=== PATIENT | female | born 1970 | race Caucasian/White ===

== ENCOUNTER → 2018-02-13 08:34 | Outpatient (CLI) | payer OTHER, SELFPAY ==
--- NOTE | 2018-02-13 08:37 | BI_ITS ---
MAMMOGRAPHY - BILATERAL SCREENING REASON FOR EXAM: Female, 47 years old. Routine annual screening examination. PERTINENT HISTORY: Grandmother with breast cancer. TECHNIQUE: Digital bilateral breast curtis (3D mammographic acquisition) in the CC and MLO projections. 2-D mediolateral oblique (MLO) and craniocaudad (CC) views of both breasts were obtained. CAD: Full Field Digital Mammography with Computer Added Detection was performed. COMPARISON: Comparison is made with prior study dated February 12, 2017 and February 11, 2016. FINDINGS: Breast Composition: The breasts are heterogeneously dense, which may obscure small masses. There are no dominant masses or suspicious calcifications. Small benign-appearing bilateral axillary lymph nodes. No other significant abnormalities are identified. There has been no significant change since the prior study. BI/SCREENING MAMM (CAD), BILAT IMPRESSION: Stable bilateral screening mammogram. Yearly follow-up mammogram recommended. (A) ASSESSMENT CATEGORY: BIRADS Category 2: Benign. A letter regarding these results will be sent to the patient by the facility within 30 days. Approximately 10% of breast cancers are not detected by mammography. A normal mammogram should not delay biopsy of a clinically suspicious abnormality. [id number] Electronically Signed: Abel Gonzalez MD at 11:09 EST Tel [phone], Service support ,
--- OUTSIDE RECORDS SUMMARY | 2018-05-17 09:08 | XMS RPT_ITS ---
:1970 Author Organization [facility] Care Team Providers Name Role Phone CORY ORTA, DR. DOWNING Attending Unavailable KELSEY ISSA Primary Care Unavailable Erika Gu Attending Unavailable Luis Manuel Kelsey Primary Care Unavailable PROBLEMS PROBLEMS DATE TYPE CONDITION / CODE ATTENDING STATUS SOURCE 01/29/2018 Admitting Ulcerative colitis, CORY ORTA, Active [facility] Diagnosis unspecified, [facility] without Repository complications / K51.90(ICD-10) 01/29/2018 Admitting DiarrheaCORY MD., Active [facility] Diagnosis unspecified / [facility] R19.7(ICD-10) Repository PROCEDURES PROCEDURES No Procedure Records FoundRESULTS RESULTS SCREENING MAMM (CAD), Observed: 02/13/2018 Status: F Source: [place] BILAT 8:37 AM [facility] Imaging Services [address] [place] [address] SCREENING MAMM (CAD), BILAT MR#: [id number] Acct: [id number] Name: NIALL THIBODEAUX Rep #: [id number] : 1970 F 47 From: Abel Gonzalez MD PCP: Kelsey Issa DO Status: REG CLI Study: SCREENING MAMM (CAD), BILAT Date of Exam: 02/13/18 Exam# [id number] Ordering Dr: Erika Gu MD MAMMOGRAPHY - BILATERAL SCREENING REASON FOR EXAM: Female, 47 years old. Routine annual screening examination. PERTINENT HISTORY: Grandmother with breast cancer. TECHNIQUE: Digital bilateral breast curtis (3D mammographic acquisition) in the CC and MLO projections. 2-D mediolateral oblique (MLO) and craniocaudad (CC) views of both breasts were obtained. CAD: Full Field Digital Mammography with Computer Added Detection was performed. COMPARISON: Comparison is made with prior study dated February 12, 2017 and February 11, 2016. FINDINGS: Breast Composition: The breasts are heterogeneously dense, which may obscure small masses. There are no dominant masses or suspicious calcifications. Small benign-appearing bilateral axillary lymph nodes. No other significant abnormalities are identified. There has been no significant change since the prior study. BI/SCREENING MAMM (CAD), BILAT IMPRESSION: Stable bilateral screening mammogram. Yearly follow-up mammogram recommended. (A) ASSESSMENT CATEGORY: BIRADS Category 2: Benign. A letter regarding these results will be sent to the patient by the facility within 30 days. Approximately 10% of breast cancers are not detected by mammography. A normal mammogram should not delay biopsy of a clinically suspicious abnormality. [id number] Electronically Signed: Abel Gonzalez MD at 11:09 EST Tel [phone], Service support , CC: Kelsey Issa DO; Erika Gu MD Crisis Manager: Signed FINAL SURGICAL Observed: 01/29/2018 Status: F Source: [facility] PATHOLOGY REPORT 2:31 PM [facility] REPOSITORY . Pathology Reports Accession: Collected Date/Time: Received Date/Time: Pathologist: [id number] 01/29/2018 14:31 EST 01/30/2018 14:31 MD BRODY SAWYER Final Surgical Pathology Report DIAGNOSIS: LEFT COLON, BIOPSY -- HYPERPLASTIC POLYP (SEE COMMENT). Comment: There is no evidence of active ulcerative colitis. There is no evidence of dysplasia. CLINICAL INFORMATION: HISTORY OF ULCERATIVE COLITIS SPECIMEN: A LEFT COLON, BX- R/O ULCERATIVE COLITIS / DYSPLASIA GROSS DESCRIPTION: Received in formalin labeled left colon biopsy are several sloan glistening soft tissues ranging from 0.2-0.8 cm. TS -1 Dictated by Jaida LAU ([facility]) MICROSCOPIC DESCRIPTION: Slides reviewed. Electronically Signed by Pathology Report verified by [facility] Electronically signed by BRODY LAY MD Sign out Date: 01/31/2018 15:14 Performing Lab: [facility], [address] [place] [address] Performed By: #### SPFR #### [place] [address] ALLERGIES ALLERGIES No Allergies Records FoundENCOUNTERS ENCOUNTERS ADMIT/DISCHARGE ACCOUNT NUMBER ADMITTING ENCOUNTER LOCATION SOURCE CLASS 02/13/2018 [id number] Ambulatory [facility] ding:OPBI Repository 01/29/2018/02/03/20 [id number] Ambulatory ABuilding:[address] Repository PAYERS PAYERS ENCOUNTER GUARANTOR PAYER SUBSCRIBER SOURCE 02/13/2018 [facility] SK[facility]EDOB: [facility]: [id number], [id number] [place] [address]Dep: Date:[id number] [address] [place] [address] (KV) [phone]: 02/13/2018 [facility]SELF [facility]Y [facility] Number: Effective Repository Date:2017-12-13 01/29/2018 NIALL Savage [facility] SKIDMOREDOB: Insurance:[employer] SKIDMOREDOB: [facility] [id number] [employer] Number: [id number] Repository FAN [id number] [place], Date:2018-01-29 - [place] [address]Wmc: [id number] [address]Egk: Name:CPO Orozco ()Tel: [phone], [place] () () [phone]: () [phone]
== END ==
PROVIDERS: Family Provider Family Medicine; PCP Family Medicine; Visit Provider Obstetrics & Gynecology
DX: Z12.31 Encounter for screening mammogram for malignant neoplasm of breast (principal)
CPT/HCPCS: 77063; 77067

== ENCOUNTER → 2018-12-25 14:41 | Outpatient (CLI) | payer OTHER, SELFPAY ==
[2018-12-30 15:48] LABS: Age Gdln ACOG Testing 30-65 (.)
[2018-12-30 16:24] LABS: HPV APTIMA, High Risk Negative (Negative)
[2018-12-30 16:25] LABS: HPV Reflexed? YES, CHARGE PATIENT
== END ==
PROVIDERS: Visit Provider Obstetrics & Gynecology
DX: Z12.4 Encounter for screening for malignant neoplasm of cervix (principal)
CPT/HCPCS: 87624; 88175; G0145

== ENCOUNTER → 2019-03-11 10:11 | Outpatient (CLI) | payer OTHER, SELFPAY ==
--- NOTE | 2019-03-11 10:15 | BI_ITS ---
MAMMOGRAPHY - BILATERAL SCREENING REASON FOR EXAM: Female, 48 years old. Routine annual screening examination. PERTINENT HISTORY: Grandmother with breast cancer. TECHNIQUE: Digital bilateral breast gerardo (3D mammographic acquisition) in the CC and MLO projections. 2-D mediolateral oblique (MLO) and craniocaudad (CC) views of both breasts were obtained. CAD: Full Field Digital Mammography with Computer Added Detection was performed. COMPARISON: Comparison is made with prior examination dated February 13, 2018 and February 12, 2017. FINDINGS: Breast Composition: The breasts are heterogeneously dense, which may obscure small masses. There are no dominant masses or suspicious calcifications. Stable benign-appearing bilateral axillary lymph nodes. No other significant abnormalities are identified. There has been no significant change since the prior study. BI/SCREEN MAMM (CAD) W/GERARDO BILAT IMPRESSION: Stable bilateral screening mammogram. Yearly follow-up mammogram recommended. (A) ASSESSMENT CATEGORY: BIRADS Category 2: Benign. A letter regarding these results will be sent to the patient by the facility within 30 days. Approximately 10% of breast cancers are not detected by mammography. A normal mammogram should not delay biopsy of a clinically suspicious abnormality. [id number] Electronically Signed: Abel Gonzalez, at 11:20 EST , Service support ,
== END ==
PROVIDERS: Referring Provider Obstetrics & Gynecology; Visit Provider Obstetrics & Gynecology
DX: Z12.31 Encounter for screening mammogram for malignant neoplasm of breast (principal)
CPT/HCPCS: 77063; 77067

== ENCOUNTER → 2020-03-16 10:23 | Outpatient (CLI) | payer OTHER, SELFPAY ==
--- NOTE | 2020-03-16 10:31 | BI_ITS ---
MAMMOGRAPHY - BILATERAL SCREENING REASON FOR EXAM: Female, 49 years old. Routine annual screening examination. PERTINENT HISTORY: Grandmother with breast cancer. TECHNIQUE: Digital bilateral breast gerardo (3D mammographic acquisition) in the CC and MLO projections. 2-D mediolateral oblique (MLO) and craniocaudad (CC) views of both breasts were obtained. CAD: Full Field Digital Mammography with Computer Added Detection was performed. COMPARISON: Comparison is made with prior examination dated 03/11/2019 and 02/13/2018. FINDINGS: Breast Composition: The breasts are heterogeneously dense, which may obscure small masses. There are no dominant masses or suspicious calcifications. Stable benign appearing small axillary lymph nodes. No other significant abnormalities are identified. There has been no significant change since the prior study. BI/SCRN MAMM (CAD)W/GERARDO BILAT IMPRESSION: Stable bilateral screening mammogram. Yearly follow-up mammogram recommended. (A) ASSESSMENT CATEGORY: BIRADS Category 2: Benign. A letter regarding these results will be sent to the patient by the facility within 30 days. Approximately 10% of breast cancers are not detected by mammography. A normal mammogram should not delay biopsy of a clinically suspicious abnormality. [id number] Electronically Signed: Abel Gonzalez MD at 8:00 EST , Service support ,
== END ==
PROVIDERS: PCP Student in an Organized Health Care Education/Training Program; Visit Provider Obstetrics & Gynecology
DX: Z12.31 Encounter for screening mammogram for malignant neoplasm of breast (principal)
CPT/HCPCS: 77063; 77067

== ENCOUNTER 2020-03-23 18:00 | Outpatient (RCR) | payer OTHER, SELFPAY ==
[2020-03-11 16:40] VITALS: BMI 30.2
[2020-03-16 16:39] VITALS: BMI 30.2
[2020-03-23 19:23] VITALS: BMI 30.2
== END 2020-03-28 23:59 ==
LOC: NS 18:00
PROVIDERS: Visit Provider Student in an Organized Health Care Education/Training Program
DX: Z71.3 Dietary counseling and surveillance (principal)
CPT/HCPCS: G9873; G9891

== ENCOUNTER 2020-04-20 18:00 | Outpatient (RCR) | payer OTHER, SELFPAY ==
[2020-03-30 19:15] VITALS: BMI 29.8
[2020-04-06 19:28] VITALS: BMI 29.7
[2020-04-13 07:00] VITALS: BMI 29.1
[2020-04-20 19:40] VITALS: BMI 29.2
== END 2020-04-25 23:59 ==
LOC: NS 18:00
PROVIDERS: PCP Student in an Organized Health Care Education/Training Program; Visit Provider Student in an Organized Health Care Education/Training Program
DX: Z71.3 Dietary counseling and surveillance (principal)
CPT/HCPCS: G9874; G9891

== ENCOUNTER 2020-05-04 18:00 | Outpatient (RCR) | payer OTHER, SELFPAY ==
[2020-05-04 19:21] VITALS: BMI 28.7
[2020-05-18 19:41] VITALS: BMI 28.6
== END 2020-05-26 23:59 ==
LOC: NS 18:00
PROVIDERS: PCP Student in an Organized Health Care Education/Training Program; Visit Provider Student in an Organized Health Care Education/Training Program
DX: Z71.3 Dietary counseling and surveillance (principal)
CPT/HCPCS: G9875; G9880; G9891

== ENCOUNTER 2020-06-15 18:00 | Outpatient (RCR) | payer OTHER, SELFPAY ==
[2020-06-02 13:31] VITALS: BMI 28.1
[2020-06-16 20:01] VITALS: BMI 28.1
== END 2020-06-25 23:59 ==
LOC: NS 18:00
PROVIDERS: PCP Student in an Organized Health Care Education/Training Program; Visit Provider Student in an Organized Health Care Education/Training Program
DX: Z71.3 Dietary counseling and surveillance (principal)
CPT/HCPCS: G9891

== ENCOUNTER 2020-07-13 18:00 | Outpatient (RCR) | payer OTHER, SELFPAY ==
[2020-06-29 20:06] VITALS: BMI 27.8
[2020-07-13 19:47] VITALS: BMI 27.5
== END 2020-07-26 23:59 ==
LOC: NS 18:00
PROVIDERS: PCP Student in an Organized Health Care Education/Training Program; Visit Provider Student in an Organized Health Care Education/Training Program
DX: Z71.3 Dietary counseling and surveillance (principal)
CPT/HCPCS: G9891

== ENCOUNTER 2020-08-24 18:00 | Outpatient (RCR) | payer OTHER, SELFPAY ==
[2020-07-27 19:42] VITALS: BMI 27.2
[2020-08-11 09:11] VITALS: BMI 27.5
[2020-08-24 20:09] VITALS: BMI 26.8
== END 2020-08-25 23:59 ==
LOC: NS 18:00
PROVIDERS: PCP Student in an Organized Health Care Education/Training Program; Visit Provider Student in an Organized Health Care Education/Training Program
DX: Z71.3 Dietary counseling and surveillance (principal)
CPT/HCPCS: G9881; G9891

== ENCOUNTER 2020-09-14 18:00 | Outpatient (RCR) | payer OTHER, SELFPAY ==
[2020-09-13 18:28] VITALS: BMI 27.2
[2020-09-14 19:50] VITALS: BMI 26.4
== END 2020-09-25 23:59 ==
LOC: NS 18:00
PROVIDERS: PCP Student in an Organized Health Care Education/Training Program; Visit Provider Student in an Organized Health Care Education/Training Program
DX: Z71.3 Dietary counseling and surveillance (principal); Z68.26 Body mass index [BMI] 26.0-26.9, adult
CPT/HCPCS: G9891

== ENCOUNTER 2020-10-26 18:00 | Outpatient (RCR) | payer OTHER, SELFPAY ==
[2020-09-29 09:54] VITALS: BMI 26.5
[2020-10-13 10:04] VITALS: BMI 26.4
== END 2020-10-26 23:59 ==
LOC: NS 18:00
PROVIDERS: PCP Student in an Organized Health Care Education/Training Program; Visit Provider Student in an Organized Health Care Education/Training Program
DX: Z71.3 Dietary counseling and surveillance (principal); Z68.26 Body mass index [BMI] 26.0-26.9, adult
CPT/HCPCS: G9891

== ENCOUNTER 2020-11-23 18:00 | Outpatient (RCR) | payer OTHER, SELFPAY ==
[2020-10-27 00:30] VITALS: BMI 26.4
[2020-11-10 11:14] VITALS: BMI 26.6
[2020-11-24 12:11] VITALS: BMI 26.1
== END 2020-11-25 23:59 ==
LOC: NS 18:00
PROVIDERS: PCP Student in an Organized Health Care Education/Training Program; Visit Provider Student in an Organized Health Care Education/Training Program
DX: Z71.3 Dietary counseling and surveillance (principal); Z68.26 Body mass index [BMI] 26.0-26.9, adult
CPT/HCPCS: G9876; G9891

== ENCOUNTER 2020-12-21 18:00 | Outpatient (RCR) | payer OTHER, SELFPAY ==
[2020-11-26 00:24] VITALS: BMI 26.1
[2020-12-08 13:02] VITALS: BMI 26.5
[2020-12-21 19:10] VITALS: BMI 26.4
== END 2020-12-26 23:59 ==
LOC: NS 18:00
PROVIDERS: PCP Student in an Organized Health Care Education/Training Program; Visit Provider Student in an Organized Health Care Education/Training Program
DX: Z00.00 Encounter for general adult medical examination without abnormal findings (principal)
CPT/HCPCS: G9891

== ENCOUNTER 2021-01-18 18:00 | Outpatient (RCR) | payer OTHER, SELFPAY ==
[2020-12-27 00:20] VITALS: BMI 26.4
[2021-01-04 19:16] VITALS: BMI 26.3
[2021-01-19 10:01] VITALS: BMI 26.6
== END 2021-01-25 23:59 ==
LOC: NS 18:00
PROVIDERS: PCP Student in an Organized Health Care Education/Training Program; Visit Provider Student in an Organized Health Care Education/Training Program
DX: Z00.00 Encounter for general adult medical examination without abnormal findings (principal)
CPT/HCPCS: G9891

== ENCOUNTER 2021-02-15 18:00 | Outpatient (RCR) | payer OTHER, SELFPAY ==
[2021-01-26 00:25] VITALS: BMI 26.6
[2021-02-02 01:30] VITALS: BMI 26.5
[2021-02-16 19:17] VITALS: BMI 26.6
== END 2021-02-25 23:59 ==
LOC: NS 18:00
PROVIDERS: PCP Student in an Organized Health Care Education/Training Program; Visit Provider Student in an Organized Health Care Education/Training Program
DX: Z00.00 Encounter for general adult medical examination without abnormal findings (principal); Z71.3 Dietary counseling and surveillance
CPT/HCPCS: G9891

== ENCOUNTER 2021-03-30 09:32 | Outpatient (CLI) | payer OTHER, SELFPAY ==
--- NOTE | 2021-03-30 09:34 | BI_ITS ---
MAMMOGRAPHY - BILATERAL SCREENING REASON FOR EXAM: Female, 50 years old. Routine annual screening examination. PERTINENT HISTORY: Grandmother with breast cancer. TECHNIQUE: Digital bilateral breast gerardo (3D mammographic acquisition) in the CC and MLO projections. 2-D mediolateral oblique (MLO) and craniocaudad (CC) views of both breasts were obtained. CAD: Full Field Digital Mammography with Computer Added Detection was performed. COMPARISON: Comparison is made with prior examination dated 03/16/2020 and 03/11/2019. FINDINGS: Breast Composition: The breasts are heterogeneously dense, which may obscure small masses. There are no dominant masses or suspicious calcifications. No other significant abnormalities are identified. There has been no significant change since the prior study. BI/SCRN MAMM (CAD)W/GERARDO BILAT IMPRESSION: Stable bilateral screening mammogram. Yearly follow-up mammogram recommended. (A) ASSESSMENT CATEGORY: BIRADS Category 1: Negative. A letter regarding these results will be sent to the patient by the facility within 30 days. Approximately 10% of breast cancers are not detected by mammography. A normal mammogram should not delay biopsy of a clinically suspicious abnormality. [id number] Electronically Signed: Abel Gonzalez MD at 10:34 EST ,
== END 2021-03-30 23:59 | disposition home or self-care (01) ==
LOC: OPBI 09:32
PROVIDERS: PCP Student in an Organized Health Care Education/Training Program; Referring Provider Obstetrics & Gynecology; Visit Provider Obstetrics & Gynecology
DX: Z12.31 Encounter for screening mammogram for malignant neoplasm of breast (principal)
CPT/HCPCS: 77063; 77067

== ENCOUNTER → 2022-02-08 | Outpatient (CLI) | payer OTHER, SELFPAY ==
[2022-02-19 20:55] LABS: HPV APTIMA, High Risk Negative (Negative)
== END | disposition home or self-care (01) ==
LOC: LABSPEC 11:11
PROVIDERS: PCP Student in an Organized Health Care Education/Training Program; Visit Provider Obstetrics & Gynecology
DX: Z12.4 Encounter for screening for malignant neoplasm of cervix (principal)
CPT/HCPCS: 87624; 88175; G0145

== ENCOUNTER → 2022-03-31 | Outpatient (CLI) | payer OTHER, SELFPAY ==
--- NOTE | 2022-03-31 10:55 | BI_ITS ---
MAMMOGRAPHY - BILATERAL SCREENING REASON FOR EXAM: Female, 51 years old. Routine annual screening examination. PERTINENT HISTORY: Grandmother with breast cancer. TECHNIQUE: Digital bilateral breast gerardo (3D mammographic acquisition) in the CC and MLO projections. 2-D mediolateral oblique (MLO) and craniocaudad (CC) views of both breasts were obtained. CAD: Full Field Digital Mammography with Computer Added Detection was performed. COMPARISON: Comparison is made with prior examination 03/30/2021 and 03/16/2020. FINDINGS: Breast Composition: The breasts are heterogeneously dense, which may obscure small masses. There are no dominant masses or suspicious calcifications. Stable small benign-appearing bilateral axillary lymph nodes. No other significant abnormalities are identified. There has been no significant change since the prior study. BI/SCRN MAMM (CAD)W/GERARDO BILAT IMPRESSION: Stable bilateral screening mammogram. Yearly follow-up mammogram recommended. (A) ASSESSMENT CATEGORY: BIRADS Category 2: Benign. A letter regarding these results will be sent to the patient by the facility within 30 days. Approximately 10% of breast cancers are not detected by mammography. A normal mammogram should not delay biopsy of a clinically suspicious abnormality. [id number] Electronically Signed: Abel Gonzalez MD at 12:45 EST ,
== END | disposition home or self-care (01) ==
LOC: OPBI 10:54
PROVIDERS: PCP Student in an Organized Health Care Education/Training Program; Referring Provider Obstetrics & Gynecology; Visit Provider Obstetrics & Gynecology
DX: Z12.31 Encounter for screening mammogram for malignant neoplasm of breast (principal)
CPT/HCPCS: 77063; 77067

== ENCOUNTER → 2023-05-07 | Outpatient (CLI) | payer OTHER, SELFPAY ==
--- NOTE | 2023-05-07 09:11 | BI_ITS ---
MAMMOGRAPHY - BILATERAL SCREENING REASON FOR EXAM: Female, 52 years old. Routine annual screening examination. PERTINENT HISTORY: Grandmother with breast cancer. TECHNIQUE: Digital bilateral breast gerardo (3D mammographic acquisition) in the CC and MLO projections. 2-D mediolateral oblique (MLO) and craniocaudad (CC) views of both breasts were obtained. CAD: Full Field Digital Mammography with Computer Added Detection was performed. COMPARISON: Comparison is made with prior study dated March 31, 2022 and March 30, 2021. FINDINGS: Breast Composition: The breasts are heterogeneously dense, which may obscure small masses. There are no dominant masses or suspicious calcifications. Stable small benign-appearing bilateral axillary lymph nodes. No other significant abnormalities are identified. There has been no significant change since the prior study. BI/SCRN MAMM (CAD)W/GERARDO BILAT IMPRESSION: Stable bilateral screening mammogram. Yearly follow-up mammogram recommended. (A) ASSESSMENT CATEGORY: BIRADS Category 2: Benign. A letter regarding these results will be sent to the patient by the facility within 30 days. Approximately 10% of breast cancers are not detected by mammography. A normal mammogram should not delay biopsy of a clinically suspicious abnormality. [id number] Electronically Signed: Abel Gonzalez MD at 12:29 EDT ,
--- OUTSIDE RECORDS SUMMARY | 2023-05-07 09:33 | XMS RPT_ITS | CCD ---
Author Name Unknown Address [address] [place] [address] Organization [facility] Care Team Providers Care Line Camera Operator Name Role Phone IZABELLA WALKER, DR ZAMARRIPA Primary Care Physician [phone] Kelsey Issa Primary Care Provider IZABELLA WALKER, DR ZAMARRIPA Primary Care Unavailable CORY LUI, DR DOWNING Attending Unavailabl e IZABELLA WALKER, DR ZAMARRIPA Attending Unavailable IZABELLA WALKER, DR ZAMARRIPA Primary Care Unavailable Kelsey Issa Primary Care Provider APPRENTICE/LINEMAN, LAURA Referring Unavailable APPRENTICE/LINEMAN, LAURA Attending Unavailable BROWN, KELSEY Primary Care Unavailable APPRENTICE/LINEMAN, LAURA Referring Unavailable APPRENTICE/LINEMAN, LAURA Attending Unavailable BROWN, KELSEY Primary Care Unavailable APPRENTICE/LINEMAN, LAURA Attending Unavailable APPRENTICE/LINEMAN, LAURA Referring Unavailable BROWN, KELSEY Primary Care Unavailable APPRENTICE/LINEMAN, LAURA Attending Unavailable APPRENTICE/LINEMAN, LAURA Referring Unavailable BROWN, KELSEY Primary Care Unavailable APPRENTICE/LINEMAN, LAURA Attending Unavailable APPRENTICE/LINEMAN, LAURA Referring Unavailable BROWN, KELSEY Primary Care Unavailable APPRENTICE/LINEMAN, LAURA Attending Unavailable APPRENTICE/LINEMAN, LAURA Referring Unavailable BROWN, KELSEY Primary Care Unavailable APPRENTICE/LINEMAN, LAURA Attending Unavailable APPRENTICE/LINEMAN, LAURA Referring Unavailable BROWN, KELSEY Primary Care Unavailable BROWN, KELSEY Primary Care Unavailable APPRENTICE/LINEMAN, LAURA Attending Unavailable APPRENTICE/LINEMAN, LAURA Referring Unavailable APPRENTICE/LINEMAN, LAURA Attending Unavailable APPRENTICE/LINEMAN, LAURA Referring Unavailable BROWN, KELSEY Primary Care Unavailable APPRENTICE/LINEMAN, LAURA Attending Unavailable APPRENTICE/LINEMAN, LAURA Referring Unavailable BROWN, KELSEY Primary Care Unavailable Medications Current Medications Medication Drug Class(es) Dates Sig (Normalized) Sig (Original) calcium carbonate 500 mg / cholecalciferol 200 unt oral tablet (4 sources) Vitamin D Start: 06-08-2014 calcium (as citrate)-vitamin D 200 mg-200 intl units oral tablet 0 Refill(s) Start Date: 06/08/14 Status: Ordered Problems Problem Classification Problem Date Documented Da te Episodic/Chronic Acquired foot deformities (9 sources) Acquired right hallux valgus; Translations: [Hallux valgus (acquired), right foot] Onset: 07-04-2022 Chronic Calculus of urinary tract (4 sources) Kidney stone 08-05-2019 Episodic Diabetes mellitus without complication (4 sources) Prediabetes 08-05-2019 Episodic Lymphadenitis (8 sources) Axillary lymphadenopathy; Translations: [Lymphadenitis] 03-31-2020 Episodic Results Test Name Value Interpretation Reference Range Facil ity Encounters Encounter Date Encounter Type Care Provider Facility Start: 07-25-2022 End: 07-26-2022 ambulatory Laura Ellison Work Phone: [facility] Procedures Date Procedure Procedure Detail Performing Clinician Start: 03-31-2022 Mammography Selina tate PT Hysteroscopy DR MARILOU Abdi O Rhinoseptoplasty DR MARILOU FREITAS DO Plan of Treatment Date Care Activity Detail Author Start: 03-23-2031 DTaP/Tdap/Td Vaccine s (3 - Td or Tdap) DTaP/Tdap/Td Vaccines (3 - Td or Tdap) [facility] Start: 03-31-2023 Screening for malign ant neoplasm of breast Mammogram [facility] Start: 10-27-2022 Influenza vaccination Influenza Vacc ine (#1) [facility] Start: 08-01-2022 End: 08-01-2022 Follow-up encounter 08/01/2022 Follow-Up Physical Therapy Selina Chavez, PT [facility] Start: 07-25-2022 End: 07-25-2022 ambulatory 07/25/2022 Evaluation Physical Therapy Selina Chavez, PT [facility] Start: 07-19-2022 End: 07-19-2022 Follow-up encounter 07/19/2022 Follow-Up Physical Therapy Evan Benjamin PTA [facility] Start: 07-17-2022 End: 07-17-2022 Follow-up encounter 07/17/2022 Follow-Up Physical Therapy Evan Benjamin, TAWANDA [facility] Start: 07-13-2022 End: 07-13-2022 Follow-up encounter [facility] Start: 07-11-2022 End: 07-11-2022 Follow-up encounter 07/11/2022 Follow-Up Physical Therapy Emmanuel Melo PTA [facility] Start: 07-10-2022 End: 07-10-2022 Follow-up encounter [facility] Start: 07-07-2022 End: 07-07-2022 Follow-up encounter [facility] Start: 07-04-2022 End: 07-04-2022 Follow-up encounter [facility] Start: 06-28-2022 End: 06-28-2022 Follow-up encounter [facility] Start: 06-27-2022 End: 06-27-2022 Follow-up encounter 06/27/2022 Follow-Up Physical Therapy Selina Chavez, PT [facility] Start: 06-09-2022 Zoster Vaccines (2 of 2) Zoste r Vaccines (2 of 2) [facility] Start: 01-28-2009 MMR Vaccines (1 of 1 - Standard series) MMR Vaccines (1 of 1 - Standard series) [facility] Start: 10-26-1999 Screening for malign ant neoplasm of cervix [facility] Start: 1990 Screening for malign ant neoplasm of cervix Pap Smear [facility] Start: 1988 Hepatitis A Vaccines (1 of 2 - Risk 2-dose series) Hepatitis A Vaccines (1 of 2 - Risk 2-dose series) [facility] Start: 10-26-1987 Hepatitis C screening Hepatitis C Sc reening [facility] Start: 1981 Depression Screening Depression Scre ening [facility] Start: 1970 Hepatitis A Vaccines (1 of 2 - Risk 2-dose series) Hepatitis A Vaccines (1 of 2 - Risk 2-dose series) [facility] Start: 1969 Hepatitis B Vaccines (1 of 3 - 3-dose series) Hepatitis B Vaccines (1 of 3 - 3-dose series) [facility] Start: 1969 HIV screening HIV Screening [facility] Start: 1969 Screening for malign ant neoplasm of colon [facility] Immunizations Immunization Date Immunization Notes Care Provider Cuca trejo 06-21-2022 zoster vaccine recombinant; Translations: [Shingrix] DR CHANG RAY MD [facility] 04-14-2022 Pneumococcal conjuga te PCV20, polysaccharide [id number] conjugate, adjuvant, PF; Translations: [Prevnar 20] DR MARILOU PAREKH DO [facility] 04-14-2022 zoster vaccine recombinant; Translations: [Shingrix] DR MARILOU PAREKH DO [facility] 11-30-2021 influenza virus vacc ine, unspecified formulation DR MARILOU PAREKH DO [facility] 03-23-2021 tetanus toxoid, redu virginie diphtheria toxoid, and acellular pertussis vaccine, adsorbed; Translations: [Boostrix (Tdap)] DR MARILOU PAREKH DO [facility] 01-26-2021 SARS-CoV-2 mRNA (tozinameran) vaccine DR MARILOU PAREKH DO [facility] 04-23-2020 SARS-CoV-2 mRNA (tozinameran) vaccine DR MARILOU PAREKH DO [facility] 04-01-2020 SARS-CoV-2 mRNA (tozinameran) vaccine DR MARILOU PAREKH DO [facility] Payers Date Payer Category Payer Unknown [facility] [id number] 2022-Present [address] [place] [address] Commercial [id number] 2022 Unknown [id number] 1970 Unknown [id number] 1970 Unknown [id number] Social History Date Type Detail Facility Start: 08-17-2020 Never smoked t rosana (finding) [facility] Sex Assigned At Female [facility] Tobacco smoking stat [facility] Tobacco smoking consumption unknown [facility] Start: 1970 Sex Assigned At Not on file [facility] Gender identity Not on file [facility] Clinical Notes 06-21-2022 to 07-25-2022 Selina Chavez, PT - 07/25/2022 9:00 AM Theo Chavez, PT - 07/10/2022 10:00 AM Theo Chavez, PT - 07/07/2022 9:30 AM EDTLawsydnee Melo, TOE FORMER - 07/04/2022 9:00 AM EDTLaboratory Note Date & Type Note Facility 07-25-2022 History of Present illness Narrative Images from the original note were not included. [facility] [facility] [place] [address] [place] [address] Dept: [phone] Dept PHYSICAL THERAPY RE-EVALUATION/DISCHARGE Patient Name: Brenda Elias : 1970 Date of Service: 07/25/2022 Referring Provider: [place], Laura, DO Diagnosis: Primary osteoarthritis, right ankle and foot Reason for referral/Mechanism of injury: 06/21/22: Onset of R heel pain ~1 year and reports plantar fasciitis. She states no NIKHIL, but was walking a lot. Pain has worsened in the past few months. She went to [facility] and was given stretches, Voltaren cream, shoe inserts, and switched to Steve shoes; limited progress with those. She had injection 06/13/22 with noted improvement. Precautions/Red Flags: None Patient Preferences: NA Subjective General Comments: Pt reports she is feeling 100% PLOF with R heel and hasn't had pain in a few weeks. Chief Complaint: R heel pain/plantar fasciitis Pain: Current: 0/10 Best: 0/10 Worst: 0/10 Patient's Stated Goal: to resolve pain Objective Palpation: 06/21/22: Concordant tenderness and tightness R heel (moderate), R plantar fascia (moderate). Nonconcordant tenderness and tightness R gastroc and soleus (severe for both, lateral>medial). 07/25/22 = Concordant tenderness and tightness R heel (slight), R plantar fascia (slight). Nonconcordant tenderness and tightness R gastroc and soleus (slight). FAAM: 06/21/22 = 69/84 07/25/22 = 69/84 Assessment 51 yo female has participated in 1 month of PT for pain in R heel consistent with plantar fasciitis. Tx has focused on manual therapy with laser and STM techniques, as well as intrinsic foot strengthening and stretches. Pt has not been having pain and feels 100% PLOF. She no longer requires skilled PT and is ready for discharge. Goals Resolved General/Ortho Patient will increase functional score on FAAM from 69/84 to 78/84 to increase functional activities. (Completed) Start: 06/21/22 Expected End: 07/31/22 Met: 07/25/22 Goal Note 84/84 Patient will report resolved R heel pain in the past week of ADL's and walking. (Completed) Start: 06/21/22 Expected End: 07/31/22 Met: 07/25/22 Patient will reports reduced tenderness in gastroc/soleus from severe to mild and in R heel and arch from moderate to slight in order to demo increased soft tissue mobility and prevent pain. (Completed) Start: 06/21/22 Expected End: 07/31/22 Met: 07/25/22 Plan Discharge from PT. Treatment Therapeutic Activity # of Activities: 1 Therapeutic Activity 1: reassessment, goals, measures, POC Soft Tissue Mobilization Location: laser therapy to R heel and arch followed by STM (MFR & TPR) to R heel, arch, soleus, and gastroc Body Position: Prone Comments: Deep chronic setting Time Entry Total Treatment Time Start Time: 907 Stop Time: 934 Time Calculation (min): 27 min PT Therapeutic Procedures Time Entry Therapeutic Activity Time Entry: 10 Manual Therapy Time Entry: 15 Selina Chavez PT documented in this encounter [facility] 07-10-2022 History of Present illness Narrative Images from the original note were not included. [facility] AT [address] [place] [address] Dept: [phone] Dept PHYSICAL THERAPY TREATMENT Patient Name: Brenda Elias : 1970 Date of Service: 07/10/2022 Referring Provider: Laura Ellison DO Diagnosis: Primary osteoarthritis, right ankle and foot Reason for referral/Mechanism of injury: 06/21/22: Onset of R heel pain ~1 year and reports plantar fasciitis. She states no NIKHIL, but was walking a lot. Pain has worsened in the past few months. She went to [facility] and was given stretches, Voltaren cream, shoe inserts, and switched to Steve shoes; limited progress with those. She had injection 06/13/22 with noted improvement. Precautions/Red Flags: None Patient Preferences: NA Subjective Pt denies pain. She feels she is doing better overall. Compliance with HEP: Yes Objective Objective measurements not taken today. Treatment Therapeutic Exercise Therapeutic Exercise Acitivity 3: Airex Activity 3 Comment: NBOS x30 ; tandem 2x30 each foot fwd Therapeutic Exercise Activity 4: slant board stretch Activity 4 Comment: gastroc & soleus stretches 2x30 each Soft Tissue Mobilization Location: laser therapy to R heel and arch followed by STM (MFR & TPR) to R heel, arch, soleus, and gastroc Body Position: Prone Comments: Deep chronic setting Assessment Skilled physical therapy interventions utilized to improve patient s impairments and work towards established goals. Patient response to treatment: Pt tolerates session with continued MT with laser and STM and intrinsic foot training and stretches. Patient will benefit from continued physical therapy to achieve goals. The rationale for today s treatment was explained to the patient. Verbal cues were provided for correct form with all exercises. Advised patient to continue with Home Exercise Program (HEP). Goals General/Ortho Patient will increase functional score on FAAM from 69/84 to 78/84 to increase functional activities. (Progressing) Start: 06/21/22 Expected End: 07/31/22 Patient will report resolved R heel pain in the past week of ADL's and walking. (Progressing) Start: 06/21/22 Expected End: 07/31/22 Patient will reports reduced tenderness in gastroc/soleus from severe to mild and in R heel and arch from moderate to slight in order to demo increased soft tissue mobility and prevent pain. (Progressing) Start: 06/21/22 Expected End: 07/31/22 Plan Plan for next session: Continue with MT (laser and STM) and intrinsic foot strengthening with balance and stretching. Time Entry Total Treatment Time Start Time: 1001 Stop Time: 1029 Time Calculation (min): 28 min PT Therapeutic Procedures Time Entry Therapeutic Exercise Time Entry: 8 Manual Therapy Time Entry: 20 Selina Chavez PT documented in this encounter [facility] 07-07-2022 History of Present illness Narrative Images from the original note were not included. [facility] AT [address] [place] [address] Dept: [phone] Dept PHYSICAL THERAPY TREATMENT Patient Name: Brenda Elias : 1970 Date of Service: 07/07/2022 Referring Provider: Laura Ellison DO Diagnosis: Primary osteoarthritis, right ankle and foot Reason for referral/Mechanism of injury: 06/21/22: Onset of R heel pain ~1 year and reports plantar fasciitis. She states no NIKHIL, but was walking a lot. Pain has worsened in the past few months. She went to [facility] and was given stretches, Voltaren cream, shoe inserts, and switched to Steve shoes; limited progress with those. She had injection 06/13/22 with noted improvement. Precautions/Red Flags: None Patient Preferences: NA Subjective Pt denies pain. She states she hasn't had pain in a few weeks, but still has tenderness with calf muscles. Compliance with HEP: Yes Objective Objective measurements not taken today. Treatment Therapeutic Exercise # of Activities: 5 Therapeutic Exercise Acitivity 3: Airex Activity 3 Comment: NBOS 3x30 ; tandem 2x30 each foot fwd Therapeutic Exercise Activity 4: slant board stretch Activity 4 Comment: gastroc & soleus stretches 1x30 each Soft Tissue Mobilization Location: laser therapy to R heel and arch followed by STM (MFR & TPR) to R heel, arch, soleus, and gastroc Body Position: Prone Comments: Deep chronic setting Assessment Skilled physical therapy interventions utilized to improve patient s impairments and work towards established goals. Patient response to treatment: Pt tolerates session. Soft tissue restrictions R soleus>gastroc present. Good response to tx. Patient will benefit from continued physical therapy to achieve goals. The rationale for today s treatment was explained to the patient. Verbal cues were provided for correct form with all exercises. Advised patient to continue with Home Exercise Program (HEP). Goals General/Ortho Patient will increase functional score on FAAM from 69/84 to 78/84 to increase functional activities. (Progressing) Start: 06/21/22 Expected End: 07/31/22 Patient will report resolved R heel pain in the past week of ADL's and walking. (Progressing) Start: 06/21/22 Expected End: 07/31/22 Patient will reports reduced tenderness in gastroc/soleus from severe to mild and in R heel and arch from moderate to slight in order to demo increased soft tissue mobility and prevent pain. (Progressing) Start: 06/21/22 Expected End: 07/31/22 Plan Plan for next session: continue per POC with MT for soft tissue mobility and pain-relief, with strength/balance. Time Entry Total Treatment Time Start Time: 924 Stop Time: 954 Time Calculation (min): 30 min PT Therapeutic Procedures Time Entry Therapeutic Exercise Time Entry: 8 Manual Therapy Time Entry: 20 Selina Chavez PT documented in this encounter [email or web address] 07-04-2022 History of Present illness Narrative Images from the original note were not included. [facility] AT [place] [address] [place] [address] Dept: [phone] Dept PHYSICAL THERAPY TREATMENT Patient Name: Brenda Elias : 1970 Date of Service: 07/04/2022 Referring Provider: Laura Ellison DO Diagnosis: Primary osteoarthritis, right ankle and foot Reason for referral/Mechanism of injury: 06/21/22: Onset of R heel pain ~1 year and reports plantar fasciitis. She states no NIKHIL, but was walking a lot. Pain has worsened in the past few months. She went to [facility] and was given stretches, Voltaren cream, shoe inserts, and switched to Steve shoes; limited progress with those. She had injection 06/13/22 with noted improvement. Precautions/Red Flags: None Patient Preferences: NA Subjective Pt denies pain prior to session. Pt states that she has not had any pain or soreness since receiving injections. Pt states she helped her daughter move out of college since last visit with no soreness at this time. Compliance with HEP: Yes Objective Objective measurements not taken today. Treatment Therapeutic Exercise # of Activities: 5 Therapeutic Exercise Activity 2: NuStep Activity 2 Comment: 5 min lvl 4 Therapeutic Exercise Acitivity 3: Airex 1EO/1EC Activity 3 Comment: x30 ea NBOS; tandem; SLS Soft Tissue Mobilization Location: laser therapy to R heel and arch followed by STM (MFR & TPR) to R heel, arch, soleus, and gastroc Body Position: Prone Comments: Deep chronic setting Assessment Skilled physical therapy interventions utilized to improve patient s impairments and work towards established goals. Patient response to treatment: Pt tolerated session well and is progressing via initiating balance activity for added ankle stability to progress towards goal no pain with ADLs. Laser and STM also performed with noted ST restrictions and point tenderness in the medial gastrocnemius at this time. Patient will benefit from continued physical therapy to progress towards PT goals. The rationale for today s treatment was explained to the patient. Verbal cues were provided for correct form with all exercises. Advised patient to continue with Home Exercise Program (HEP). Goals General/Ortho Patient will increase functional score on FAAM from 69/84 to 78/84 to increase functional activities. (Progressing) Start: 06/21/22 Expected End: 07/31/22 Patient will report resolved R heel pain in the past week of ADL's and walking. (Progressing) Start: 06/21/22 Expected End: 07/31/22 Patient will reports reduced tenderness in gastroc/soleus from severe to mild and in R heel and arch from moderate to slight in order to demo increased soft tissue mobility and prevent pain. (Progressing) Start: 06/21/22 Expected End: 07/31/22 Plan Plan for next session: Progress balance activity next visit. Consider adding HR if tolerated. Time Entry Total Treatment Time Start Time: 900 Stop Time: 928 Time Calculation (min): 28 min PT Therapeutic Procedures Time Entry Therapeutic Exercise Time Entry: 15 Manual Therapy Time Entry: 13 Emmanuel Melo PTA documented in this encounter [facility] 06-28-2022 History of Present illness Narrative Images from the original note were not included. [facility] [address] [place] [address] Dept: [phone] Dept PHYSICAL THERAPY TREATMENT Patient Name: Brenda Elias : 1970 Date of Service: 06/28/2022 Referring Provider: Laura Ellison DO Diagnosis: Primary osteoarthritis, right ankle and foot Reason for referral/Mechanism of injury: 06/21/22: Onset of R heel pain ~1 year and reports plantar fasciitis. She states no NIKHIL, but was walking a lot. Pain has worsened in the past few months. She went to [facility] and was given stretches, Voltaren cream, shoe inserts, and switched to Steve shoes; limited progress with those. She had injection 06/13/22 with noted improvement. Precautions/Red Flags: None Patient Preferences: NA Subjective No new complaints or c/o pain on arrival this date. Compliance with HEP: Yes Objective Objective measurements not taken today. Treatment Therapeutic Exercise: NuStep: 5 min lvl 4 IASTM Location: Gastroc/solues, plantar surface Body Position: Prone Cupping Location: Gastroc/soleus, plantar surface of R foot Body Position: Prone Comments: Stopped, too painful Assessment Skilled physical therapy interventions utilized to improve patient s impairments and work towards established goals. Patient response to treatment: Attempted trial of cupping this date. Ceased after pt complained of cupping, even w/ light suction, was too painful. Did respond well to IASTM and MT jt mobs. Pain remain unchanged post tx. Did report slight decrease soreness post tx. Patient will benefit from continued physical therapy to improve balance, RLE strength and flexibility. The rationale for today s treatment was explained to the patient. Verbal cues were provided for correct form with all exercises. Advised patient to continue with Home Exercise Program (HEP). Goals General/Ortho Patient will increase functional score on FAAM from 69/84 to 78/84 to increase functional activities. (Progressing) Start: 06/21/22 Expected End: 07/31/22 Patient will report resolved R heel pain in the past week of ADL's and walking. (Progressing) Start: 06/21/22 Expected End: 07/31/22 Patient will reports reduced tenderness in gastroc/soleus from severe to mild and in R heel and arch from moderate to slight in order to demo increased soft tissue mobility and prevent pain. (Progressing) Start: 06/21/22 Expected End: 07/31/22 Plan Plan for next session: Progress exercises w/ balance, standing hip kicks, calf raises and stretches on slant board Time Entry Total Treatment Time Start Time: 1130 Stop Time: 1200 Time Calculation (min): 30 min PT Therapeutic Procedures Time Entry Manual Therapy Time Entry: 25 Thiago Hernandez PTA documented in this encounter [facility] 06-27-2022 History of Present illness Narrative Images from the original note were not included. [facility] AT [address] [place] [address] Dept: [phone] Dept PHYSICAL THERAPY TREATMENT Patient Name: Brenda Elias : 1970 Date of Service: 06/27/2022 Referring Provider: Laura Ellison DO Diagnosis: Primary osteoarthritis, right ankle and foot Reason for referral/Mechanism of injury: 06/21/22: Onset of R heel pain ~1 year and reports plantar fasciitis. She states no NIKHIL, but was walking a lot. Pain has worsened in the past few months. She went to [facility] and was given stretches, Voltaren cream, shoe inserts, and switched to Steve shoes; limited progress with those. She had injection 06/13/22 with noted improvement. Precautions/Red Flags: None Patient Preferences: NA Subjective Pt denies current pain. Compliance with HEP: Yes Objective Objective measurements not taken today. Treatment Soft Tissue Mobilization Location: laser therapy to R heel and arch followed by STM (MFR & TPR) to R heel, arch, soleus, and gastroc Assessment Skilled physical therapy interventions utilized to improve patient s impairments and work towards established goals. Patient response to treatment: Pt tolerates first tx session with MT with laser tx. Pt with good tissue response, no issues. Patient will benefit from continued physical therapy to achieve goals. The rationale for today s treatment was explained to the patient. Verbal cues were provided for correct form with all exercises. Advised patient to continue with Home Exercise Program (HEP). Goals General/Ortho Patient will increase functional score on FAAM from 69/84 to 78/84 to increase functional activities. (Progressing) Start: 06/21/22 Expected End: 07/31/22 Patient will report resolved R heel pain in the past week of ADL's and walking. (Progressing) Start: 06/21/22 Expected End: 07/31/22 Patient will reports reduced tenderness in gastroc/soleus from severe to mild and in R heel and arch from moderate to slight in order to demo increased soft tissue mobility and prevent pain. (Progressing) Start: 06/21/22 Expected End: 07/31/22 Plan Plan for next session: try cupping therapy with STM and laser. Time Entry Total Treatment Time Start Time: 1200 Stop Time: 1225 Time Calculation (min): 25 min PT Therapeutic Procedures Time Entry Manual Therapy Time Entry: Selina Chavez PT documented in this encounter [employer] [facility] 06-21-2022 History of Present illness Narrative Images from the original note were not included. [facility] [place] [id number] [place] [address] Dept: [phone] Dept PHYSICAL THERAPY EVALUATION Patient Name: Brenda Elias : 1970 Date of Service: 06/21/2022 Referring Provider: Laura Ellison DO Diagnosis: Primary osteoarthritis, right ankle and foot Hallux valgus (acquired), right foot Plantar fascial fibromatosis General Information Reason for referral/Mechanism of injury: 06/21/22: Onset of R heel pain ~1 year and reports plantar fasciitis. She states no NIKHIL, but was walking a lot. Pain has worsened in the past few months. She went to [facility] and was given stretches, Voltaren cream, shoe inserts, and switched to Steve shoes; limited progress with those. She had injection 06/13/22 with noted improvement. Precautions/Red Flags: None Patient Preferences: NA Work status: health and physical education teacher PMHX: Brenda has no past medical history on file. PSHX: Brenda has no past surgical history on file. Have you experienced any anxiety, depression, thoughts of self-harm or suicidal thoughts?: No Physician follow-up appointment?: No Subjective Chief Complaint: R heel pain/plantar fasciitis Pain: Current: 0/10 Best: 0/10 Worst: 9/10 prior to injection; 1/10 since injection. Symptoms Aggravated by: walking (especially initially walking), resting pressure to heel while sitting Symptoms Relieved by: injection, slippers Patient s Stated Goal: to resolve pain Objective Observation: good arch, no significant abnormalities WB. Gait: no significant abnormalities. Transfers: independent Hip, knee, ankle AROM RLE: WNL, no pain Lower Extremity Strength Date 06/21/22 Right Hip Flexion 5/5 Hip Abduction 5/5 Hip Extension 5/5 Knee Extension 5/5 Knee Flexion 5/5 Ankle Dorsiflexion (DF) 5/5 Ankle Plantarflexion (PF) 5/5 Inversion 5/5 Eversion 5/5 Balance (seconds) Date 06/21/22 SLS R >30 Joint mobility: R ankle and foot joints WNL Palpation: 06/21/22: Concordant tenderness and tightness R heel (moderate), R plantar fascia (moderate). Nonconcordant tenderness and tightness R gastroc and soleus (severe for both, lateral>medial). FAAM: 06/21/22 = 69/84 Assessment Brenda Elias is a 51 y.o. patient with chief complaint of R heel pain, who presents with signs and symptoms consistent with plantar fasciitis. Pain has greatly improved since injection last week. She demos good AROM, joint mobility, and 5/5 strength. Continued impairments include soft tissue dysfunction in lower leg and foot that need addressed to prevent return of pain and functional impairments. The patient would benefit from skilled physical therapy to address pain, soft tissue impairment, and impaired functional activities. Evaluation complexity is low secondary to: patient has 1-2 personal factors and/or comorbidities that will affect plan of care, therapy will be addressing 1-2 elements, and clinical presentation is stable. Body Systems Affected: musculoskeletal Rehab Potential: Good Learning Preferences: demonstration, explanation, performance, and printed materials Barriers to Rehab: chronicity, comorbidities, duration of symptoms, leisure activity, and severity Goals General/Ortho Patient will increase functional score on FAAM from 69/84 to 78/84 to increase functional activities. Start: 06/21/22 Expected End: 07/31/22 Patient will report resolved R heel pain in the past week of ADL's and walking. Start: 06/21/22 Expected End: 07/31/22 Patient will reports reduced tenderness in gastroc/soleus from severe to mild and in R heel and arch from moderate to slight in order to demo increased soft tissue mobility and prevent pain. Start: 06/21/22 Expected End: 07/31/22 Plan Frequency and Duration: 1-2/wk for 4-6 weeks Therapeutic Contents: manual therapy techniques, therapeutic activities, therapeutic exercise, and modalities as needed Plan for next session: MT (STM/MFR/TPR, IASTM, cupping therapy) to gastroc/soleus, heel, plantar foot (R) with laser to R heel and plantar foot. If pain increases, consider US and taping. Risks and benefits were discussed with the patient and/or family, and the patient and/or family participated with the plan of care and agrees. Treatment Therapeutic Exercise # of Activities: 1 Therapeutic Exercise Activity 1: HEP Activity 1 Comment: stretches (gastroc, soleus, plnatar fascia), toe scrunches, educated on slef-massage and ice massage Patient Education: Eval, POC, HEP Time Entry Total Treatment Time Start Time: 933 Stop Time: 1018 Time Calculation (min): 44 min PT Evaluation Time Entry PT Evaluation (Low) Time Entry: 34 PT Therapeutic Procedures Time Entry Therapeutic Exercise Time Entry: 10 Selina Chavez, PT documented in this encounter [facility] Evaluation + Plan note Future Appointments Appointment Date:08/31/2021 09:00:00 AM Scheduled Provider:MARILOU PAREKH DO Location:[facility] Appointment Type:PC OV Follow Up Future Scheduled TestsVitamin D Level 03/13/21 [facility] Evaluation + Plan note Future Appointments Appointment Date:08/31/2021 09:00:00 AM Scheduled Provider:MARILOU PAREKH DO [facility] Appointment Type:PC OV Follow Up [facility] Evaluation + Plan note Future Appointments Appointment Date:04/06/2023 09:30:00 AM Scheduled Provider:MARILOU PAREKH DO Location[facility] Appointment Type:PC Wellness Annual [facility] documented in this encounter [facility]* Diagnosis Primary osteoarthritis, right ankle and foot- Primary Hallux valgus (acquired), right foot Plantar fascial fibromatosis documented in this encounter [facility]* Diagnosis Primary osteoarthritis, right ankle and foot- Primary documented in this encounter [facility]* Diagnosis Primary osteoarthritis, right ankle and foot- Primary Hallux valgus (acquired), right foot Plantar fascial fibromatosis documented in this encounter [facility]* Diagnosis Primary osteoarthritis, right ankle and foot- Primary Hallux valgus (acquired), right foot Plantar fascial fibromatosis documented in this encounter [facility]* Diagnosis Primary osteoarthritis, right ankle and foot- Primary Hallux valgus (acquired), right foot Plantar fascial fibromatosis [facility] Diagnosis Primary osteoarthritis, right ankle and foot- Primary Hallux valgus (acquired), right foot Plantar fascial fibromatosis documented in this encounter [facility] note* Diagnosis Primary osteoarthritis, right ankle and foot- Primary Hallux valgus (acquired), right foot Plantar fascial fibromatosis documented in this encounter [facility] course Narrative No data available for this section [facility] Hospital Discharge instructions No data available for this section [facility] Progress note No data available for this section [facility] Summary Purpose Family History No Family History Records FoundNo Family History Records FoundNo Family History Records Found Advance Directives No Advanced Directives Records FoundNo Advanced Directives Records FoundNo Advanced Directives Records Found Reason for Referral Specialty Diagnoses / Procedures Referred By Contalejandro t Referred To Contact Physical Therapy Diagnoses Primary osteoarthritis, right ankle and foot Hallux valgus (acquired), right foot Plantar fascial fibromatosis Procedures [place] OFFICE/OUTPATIENT [facility] 60-74 MINUTES Laura Ellison [address] [place] [address] [facility] [address] [place] [address] Referral ID Status Reason Start Date Expiration Date Visits Requested Visits Authorized [id number] Authorized Eval and Treat 06/13/2022 12/10/2022 99 99 Additional Source Comments INFORMATION SOURCE (unrecogn ized section and content) DATE CREATED AUTHOR AUTHOR'S ORGANIZ ATION 06/23/2022 [facility] ([place]) DATE CREATED AUTHOR AUTHOR'S ORGANIZ ATION 09/15/2022 [facility] Care Team (unrecognized sect ion and content) Care Team Personnel Name: CHANG RAY MD Position: Physician Member Role: Computer Architect Address: Address: [facility] [address] [address]- [place] Name: MARILOU PAREKH DO Position: P4 Physician - Primary Care Member Role: Primary Care Physician Address: Address: [address] [facility] [facility] [place] [address]- Care Team Related Persons Name: NATALYA ELIAS Address: Home [address], [place] [id number] Name: NATALYA ELIAS Address: Home [address] [place], [place] [id number] Reason for Visit (unrecogniz ed section and content) Specialty Diagnoses / Procedures Referred By Contac t Referred To Contact Physical Therapy Diagnoses Primary osteoarthritis, right ankle and foot Hallux valgus (acquired), right foot Plantar fascial fibromatosis Procedures [place]PAT[place] [facility] 60-74 MINUTES Laura Ellison [address] [place] [address] [facility] [address] [place] [address] Referral ID Status Reason Start Date Expiration Date Visits Requested Visits Authorized [id number] Authorized Eval and Treat 06/13/2022 12/10/2022 99 99 Reason Comments PT Initial Eval Specialty Diagnoses / Procedures Referred By Contac t Referred To Contact Physical Therapy Diagnoses Primary osteoarthritis, right ankle and foot Hallux valgus (acquired), right foot Plantar fascial fibromatosis Procedures [place] OFFICE/OUTPATIENT [facility] 60-74 MINUTES Laura Ellison [address] [place] [address] [facility] [address] [place] [address] Care Teams (unrecognized sec tion and content) Line Camera Operator Relationship Specialty Start Date End Date Kelsey Issa Edi [place] [phone] PCP - General 03/01/15 Line Camera Operator Relationship Specialty Start Date End Date Kelsey Issa [address] [place] [phone] (Fax) PCP - General 03/01/15 Line Camera Operator Relationship Specialty Start Date End Date Kelsey Issa [address] [place] [address] (Fax) [facility] 03/01/15 Line Camera Operator Relationship Specialty Start Date End Date Kelsey Issa [address] [place] [address] (Fax) [facility] 03/01/15 Line Camera Operator Relationship Specialty Start Date End Date Kelsey Issa [address] [place] [address] (Fax) [facility] 03/01/15 FOR RECORDS PERTAINING TO PATIENTS WHO ARE OR HAVE BEEN ENROLLED IN A CHEMICAL DEPENDENCY/SUBSTANCEABUSE PROGRAM, SOME INFORMATION MAY BE OMITTED. This clinical summary was aggregated from multiple sources. Caution should be exercised in using it in the provision of clinical care. This summary normalizes information from multiple sources, and as a consequence, information in this document may materially change the coding, format and clinical context of patient data. In addition, data may be omitted in some cases. CLINICAL DECISIONS SHOULD BE BASED ON THE PRIMARY CLINICAL RECORDS. [facility]. provides no warranty or guarantee of the accuracy or completeness of information in this document.
== END | disposition home or self-care (01) ==
LOC: OPBI 09:09
PROVIDERS: PCP Student in an Organized Health Care Education/Training Program; Referring Provider Student in an Organized Health Care Education/Training Program; Visit Provider Student in an Organized Health Care Education/Training Program
DX: Z12.31 Encounter for screening mammogram for malignant neoplasm of breast (principal)
CPT/HCPCS: 77063; 77067

== ENCOUNTER → 2024-05-15 | Outpatient (CLI) | payer OTHER, SELFPAY ==
--- NOTE | 2024-05-15 12:36 | BI_ITS ---
EXAM: SCRN MAMM (CAD)W/GERARDO BILAT DATE: 05/15/2024 CLINICAL HISTORY: F, Age 53 y/o , SCREENING. Grandmother with breast cancer. BREAST CANCER RISK ASSESSMENT: Not assessed TECHNIQUE: Bilateral screening digital breast tomosynthesis with 2D and 3D images. Computer aided detection. COMPARISON: Prior exam(s) dated May 07, 2023.. FINDINGS: TISSUE DENSITY: The breast tissue is heterogenously dense, which may obscure small masses. Bilateral Breast Mammographic Findings: No significant masses, calcifications or other abnormalities are identified. No suspicious masses, areas of developing architectural distortion, or suspicious calcifications. There has been no significant interval change. BI/SCRN MAMM (CAD)W/GERARDO BILAT IMPRESSION: Right Breast: BIRADS 1 NEGATIVE. Left Breast: BIRADS 1 NEGATIVE. OVERALL FINAL ASSESSMENT: BIRADS 1 NEGATIVE RECOMMENDATION: Routine annual follow-up in 1 Year A letter with findings and recommendations will be mailed to the patient. Reading Location: [place] [address]
== END | disposition home or self-care (01) ==
LOC: OPBI 12:35
PROVIDERS: PCP Student in an Organized Health Care Education/Training Program; Referring Provider Student in an Organized Health Care Education/Training Program; Visit Provider Student in an Organized Health Care Education/Training Program
DX: Z12.31 Encounter for screening mammogram for malignant neoplasm of breast (principal); Z80.3 Family history of malignant neoplasm of breast
CPT/HCPCS: 77063; 77067